=== PATIENT | male | born 1965 | race Caucasian/White ===

== ENCOUNTER 2019-04-02 21:17 | Emergency (ER) | payer BC ==
--- OUTSIDE RECORDS SUMMARY | 2019-04-02 21:29 | XMS REPORT | Summary of Care ---
:1965 Author Organization [facility] Address [address] [address] Care Team Providers Name Role Phone Drew Pitts Primary Care Provider Reason for Visit Reason Comments Hearing Aid Check Encounter Details Date Type Department Care Team Description 02/19/2019 Office Visit [facility] - [facility] [place], Sensorineural hearing loss, bilateral (Primary Dx); [facility] AuD Tinnitus, bilateral [address] [place] [address] [address] [address] [phone] Allergies Active Allergy Reactions Severity Noted Date Comments Naproxen Other Medium 05/27/2007 Nasal bleeding Zxhfsobj-Siqzkozhop-Jgaayuvyd Rash 04/08/2011 Shell Fish GI Reaction 10/06/2013 All fish. documented as of this encounter (statuses as of 02/19/2019) Medications Medication Sig Dispensed Refills Start Date End Date Status Multiple Vitamin Take by mouth. 0 Active (MULTI VITAMIN MENS PO) Cholecalciferol Take 1 Cap by 0 Active (VITAMIN D) 1000 UNITS mouth DAILY. Oral Cap Spacer/Aero-Holding 1 Units by Does 1 Device 0 12/03/2015 Active Chambers (AEROCHAMBER not apply route MINI CHAMBER) Does not DAILY. apply DeviceIndications: MURPHY (dyspnea on exertion) MELATONIN PO Take by mouth. 0 Active albuterol HFA Take 2 Puffs by 1 Inhaler 3 12/12/2018 Active (VENTOLIN) 108 (90 inhalation EVERY Base) MCG/ACT FOUR HOURS Inhalation Aero NEEDED (Shortness SolnIndications: MURPHY of breath). (dyspnea on exertion) valsartan (DIOVAN) 160 Take 1 Tab by 30 Tab 5 12/30/2018 Active MG Oral Tab mouth DAILY. ANDROGEL 50 MG/5GM Place 10 g onto 60 Package 0 02/18/2019 Active (1%) Transdermal Gel skin DAILY. Max Daily Amount: 10 g. documented as of this encounter (statuses as of 02/19/2019) Active Problems Problem Noted Date Essential hypertension 07/28/2017 MARIANO-inhibitor cough 07/28/2017 Other emphysema 07/28/2017 Non morbid obesity due to excess calories 11/07/2016 History of squamous cell carcinoma 08/01/2016 Low testosterone 09/06/2015 Dyslipidemia 07/20/2009 HAY FEVER 05/27/2007 OA HANDS 05/27/2007 documented as of this encounter (statuses as of 02/19/2019) Resolved Problems Problem Noted Date Resolved Date Abnormal stress test 11/04/2015 04/20/2016 Chest pain 11/04/2015 04/20/2016 Sleep Apnea 05/27/2007 04/20/2016 Tobacco Use 05/27/2007 07/20/2009 Overview: Began age 13 1 packs per day DEPRESSION 05/27/2007 07/20/2009 BMI 36.0-36.9,adult 11/07/2016 Overview: This patient's BMI has been calculated and is above average, and BMI management plan is completed. General patient education discussion including: weight loss link to reduction of risk factors for cardiac and other diseases documented as of this encounter (statuses as of 02/19/2019) Immunizations Name Administration Dates Next Due Hepatitis A Vaccine-Adult 05/28/2007 Hepatitis B Vaccine Adult 07/12/2007, 05/28/2007 Influenza (IM) Preservative Free 10/15/2018 Influenza Vaccine Whole 12/21/2004 TDAP Vaccine 05/28/2007 documented as of this encounter Social History Tobacco Use Types Packs/Day Years Used Date Former Smoker Cigarettes 1 30 Quit: 02/12/2009 Smokeless Tobacco: Never Used Alcohol Use Drinks/Week oz/Week Comments Yes 5-6 Standard drinks or equivalent 5.0 - 6.0 Sex Assigned at Date Recorded Not on file Job Start Date Occupation Industry Not on file Not on file Not on file Travel History Travel Start Travel End No recent travel history available. documented as of this encounter Last Filed Vital Signs Not on filedocumented in this encounter Progress Notes Max [place] AuD - 02/19/2019 8:00 AM ESTThe patient was unaccompanied to today's appointment. The purpose of today's appointment was to pick-up the patient's new custom hearing protection from [facility]. The patient has a history of custom useand was comfortable inserting and removing the molds from his ear. He reports a comfortable fit and requested to obtained a second pair of the custom molds in the exact settings. Arlen was contacted and a new order was placed through [employer] in customer service at Ext [phone]. Prior to leaving the patient was instructed to monitor fit/comfort over extended use. He was also provided the bill for $150. Once the second pair of custom molds arrive he will be contacted for P/U. A defined appointment will not be necessary for the pick- up of his second pair unless he has any concerns with his current pairs fit. He will be billed $150 at time for pick-up. documented in this encounter Plan of Treatment Name Type Priority Associated Diagnoses Order Schedule HEARING AID RECHECK Procedures Routine Sensorineural hearing Ordered: 02/19 loss, bilateral Tinnitus, bilateral Health Maintenance Due Date Last Done Comments PNEUMOCOCCAL 0-64 YRS (1 of 1970 1 - PPSV23) ZOSTER IMMUNIZATION SERIES 2014 (1 of 2) DTaP/Tdap/Td Vaccines (2 - 05/27/2017 05/28/2007 Tdap) LIPID DISORDER SCREENING 04/24/2019 04/23/2018, 10/27/2017, 10/30/2016, Additional history exists DEPRESSION SCREENING 05/04/2019 05/03/2018 DIABETES SCREENING 11/06/2019 11/05/2018, 11/05/2018, 04/23/2018, Additional history exists Colonoscopy 06/14/2021 06/14/2016 HEPATITIS A IMMUNIZATION Aged Out 05/28/2007 No longer eligible SERIES based on patient's age to complete this topic INFLUENZA VACCINE Completed 10/15/2018, 12/21/2004 HPV IMMUNIZATION SERIES Aged Out No longer eligible based on patient's age to complete this topic MENINGOCOCCAL VACCINE IMM Aged Out No longer eligible based on patient's age to complete this topic documented as of this encounter Goals Goal Patient Goal Associated Recent Patient-Stated? Author Type Problems Progress Blood Pressure Blood Pressure 120/74 No Jessica, < 140/90 (10/15/2018 Good Gee, 8:23 AM EDT) Note: This is an individualized treatment (blood pressure) goal for Bill Cardenas: Displayed above (on the left) is your goal for blood pressure control. Your most recent blood pressure is also shown above, on the right. You should try to achieve blood pressures that are lower than your goal listed above (on the left). Keep immunizations current Lifestyle Good Hunter MD Note: This is an individualized lifestyle goal for Bill Cardenas: Please be sure to keep up-to-date on recommended immunizations. For example, this would include a yearly influenza vaccine. Immunization status can be seen by looking at the Health Maintenance sections of your e[facility], Plan of Care, and any After Visit Summaries. Unit - lb < 220 Result Component No Drew Pitts MD Take all prescribed medications as Self-management Good Hunter MD directed Note: This is an individualized self-management goal for Bill Cardenas: Please take all prescribed medications as directed. 1. Do not skip doses. If you cannot afford your medications, talk with your doctor. 2. Use a pill reminder system such as a pill box if needed. Your pharmacist can help you with this. 3. Contact your Pharmacy 5 days before your medication runs out. If you cannot take your medications for any reasons, talk with your doctor. 4. Please bring all of your medication bottles and inhalers (or a list of all your medications/inhalers) with you to every visit. Potential barriers to meeting all of your care plan goals will continue to be addressed on an ongoing basis. documented as of this encounter Results Not on filedocumented in this encounter Visit Diagnoses Diagnosis Sensorineural hearing loss, bilateral Tinnitus, bilateral Unspecified tinnitus documented in this encounter Insurance Payer Benefit Plan / Subscriber ID Effective Dates Phone Address Type Group Map[employer]BS [employer] BCBS xxxxxxxxxxxx 2016-Present [employer] Guarantor Name Account Type Relation to Date of Phone Billing Patient Address Bill Cardenas Personal/Family 1965 [address] (Home) [place], [place] [phone] (Work) documented as of this encounter
[2019-04-02] MEDS ORDERED: Amoxicillin/Clavulanate TAB* 875 MG PO ONE (21:35)
--- NOTE | 2019-04-02 21:39 | ED ---
Bite Injury/Animal - HPI Summary HPI Summary: 53-year-old right-hand dominant male presents to the emergency department today after being bitten by his dog approximately 20 minutes ago and sustaining a laceration to his left thumb. Patient states he is pointing with his dog when the event happened. The dog is up-to-date with rabies vaccination. Patient is up-to-date with tetanus immunization. Patient has full range of motion and has no numbness or tingling. Patient otherwise feels well and denies fever, chest and abdominal pain, pain with urination, rash. - History of Current Complaint Chief Complaint: EDAnimalBite Stated Complaint: L THUMB LAC PER PT Hx Obtained From: Patient Onset of Injury: Happened hours ago Type of Bite: Animal Hx of Bite: Provoked by: - play Has Animal Been Immunized?: Yes Severity Initially: Moderate Severity Currently: Moderate Pain Intensity: 6 Pain Scale Used: 0-10 Numeric Character: Puncture Animal Available for Observation: Yes Animal Control Notified: No - Allergies/Home Medications Allergies/Adverse Reactions: Allergies Allergy/AdvReac Type Severity Reaction Status Date / Time bacitracin Allergy Blisters Verified 04/02/19 21:53 naproxen Allergy Bleeding Verified 04/02/19 21:53 neomycin Allergy Blisters Verified 04/02/19 21:53 [From Neosporin ([id number])] NSAIDS (Non-Steroidal Allergy Bleeding Verified 04/02/19 21:53 Anti-Inflamma polymyxin B Allergy Blisters Verified 04/02/19 21:53 [From Neosporin ([id number])] Home Medications: Home Medications Mometasone NASAL (NF) [Nasonex (NF)] 50 mcg NA DAILY PRN 06/11/15 [History Confirmed 04/02/19] Multiple Vitamins W/ Minerals [Multivitamin Adults] 1 tab PO DAILY 06/11/15 [ History Confirmed 04/02/19] Testosterone [Androgel] 50 mg TD DAILY 06/11/15 [History Confirmed 04/02/19] Amoxicillin/Clavulanate TAB* [Augmentin TAB 875*] 875 mg PO BID 7 Days #14 tab 04/02/19 [Rx] Triamcinolone 0.1% CREAM (NF) [Kenalog 0.1% Cream (NF)] 1 applic TOPICAL DAILY 04/02/19 [History Confirmed 04/02/19] Valsartan 1 tab PO DAILY 04/02/19 [History Confirmed 04/02/19] PMH/Surg Hx/FS Hx/Imm Hx Endocrine/Hematology History: Reports: Other Endocrine/Hematological Disorders - testosterone therapy Denies: Hx Anticoagulant Therapy, Hx Diabetes, Hx Thyroid Disease Cardiovascular History: Denies: Hx Hypertension Respiratory History: Denies: Hx Asthma, Hx Chronic Obstructive Pulmonary Disease (COPD) GI History: Denies: Hx Ulcer Neurological History: Reports: Hx Migraine - 2 x - has "stroke like" sx when these occur - Surgical History Surgery Procedure, Year, and Place: septum repair, hernia, vasectomy Infectious Disease History: No Infectious Disease History: Denies: Hx Hepatitis, Hx Human Immunodeficiency Virus (HIV), Traveled Outside the [place] in Last 30 Days - Family History Known Family History: Positive: Unknown - Social History Alcohol Use: Weekly Hx Substance Use: No Substance Use Type: Reports: None Smoking Status (MU): Former Smoker Review of Systems Constitutional: Negative Eyes: Negative ENT: Negative Cardiovascular: Negative Respiratory: Negative Gastrointestinal: Negative Genitourinary: Negative Musculoskeletal: Negative Skin: Negative Neurological/Mental Status: Negative Psychological: Normal All Other Systems Reviewed And Are Negative: Yes Physical Exam - Summary Physical Exam Summary: .5cm puncture wound noted to the distal left thumb. pt has rull ROM and no numbness and tingling. Triage Information Reviewed: Yes Vital Signs On Initial Exam: Initial Vitals Temp Pulse Resp BP Pulse Ox 97.5 F 93 18 143/97 96 04/02/19 21:18 04/02/19 21:18 04/02/19 21:18 04/02/19 21:18 04/02/19 21:18 Vital Signs Reviewed: Yes Appearance: Positive: Well-Appearing, No Pain Distress, Well-Nourished Skin: Positive: Warm, Skin Color Reflects Adequate Perfusion Eyes: Positive: EOMI, IVETH ENT: Positive: Hearing grossly normal Respiratory/Lung Sounds: Positive: Clear to Auscultation, Breath Sounds Present Cardiovascular: Positive: RRR, S1, S2 Abdomen Description: Positive: Nontender, Soft Bowel Sounds: Positive: Present Musculoskeletal: Positive: Strength/ROM Intact Neurological: Positive: Sensory/Motor Intact, Alert, Oriented to Person Place, Time, Normal Gait, Facial Symmetry, Speech Normal Psychiatric: Positive: Normal, Affect/Mood Appropriate AVPU Assessment: Alert Procedures - Sedation Patient Received Moderate/Deep Sedation with Procedure: No - Laceration/Wound Repair 1 Location: upper extremity Description: Irregular Anesthesia: Local, 1.0% Length, Depth and Shape: .5cm x .5cm Betadine Prep?: No Irrigated w/ Saline (ccs): 200 Laceration/Wound Explored: clean Closure: Single Layer Debridement: minimal Suture Type: Prolene Number of Sutures: 3 Layer Closure?: No Sterile Dressing Applied?: Yes Diagnostics - Vital Signs Vital Signs Temp Pulse Resp BP Pulse Ox 04/02/19 21:18 97.5 F 93 18 143/97 96 - Laboratory Lab Statement: Any lab studies that have been ordered have been reviewed, and results considered in the medical decision making process. Bite Injury Course/Dx - Course Course Of Treatment: Pt evaluated for dog bite. pt Tdap is UTD. vitals noted and stable. Pt laceration was cleaned and loosley approximated with 3 4-0 prolene sutures and placed in a sterile dressing. Pt given one dose of augmenting in the ER as well as a prescription for augmentin to continue taking for prophylaxis. PT discharged to outpatinet follow up. - Diagnoses Differential Diagnosis/HQI/PQRI: Positive: Fracture, Laceration, Puncture Provider Diagnosis: Laceration of thumb, Dog bite Discharge ED - Sign-Out/Discharge Documenting (check all that apply): Patient Departure - Discharge Plan Condition: Stable Disposition: HOME Prescriptions: Amoxicillin/Clavulanate TAB* [Augmentin TAB 875*] 875 mg PO BID 7 Days #14 tab Patient Education Materials: Animal Bite (ED), Care For Your Stitches (ED), Laceration (ED) Forms: *Work Release Referrals: Drew Pitts MD [Primary Care Provider] - 3 Days Additional Instructions: Please have your sutures removed in 8-10 days at your primary care provider or the emergency department. Please keep the dressing applied to your wound today dry and intact for 12 hours and then you may remove this and gently clean your wound. Please reapply dressing over this after cleaning your wound cleaning. Please wear gloves while at work. Due to infection rates please take Augmentin 875 twice daily for 7 days. Please return to the emergency department immediately if you develop any new or worsening symptoms. - Billing Disposition and Condition Condition: STABLE Disposition: Home
[2019-04-02 23:25] VITALS: BP 125/93
== END 2019-04-02 23:24 | disposition home or self-care (01) ==
LOC: ED 21:17
DX: S61.052A Open bite of left thumb without damage to nail, initial encounter (principal); W54.0XXA Bitten by dog, initial encounter; Y92.009 Unspecified place in unspecified non-institutional (private) residence as the place of occurrence of the external cause; Z98.52 Vasectomy status; Z87.891 Personal history of nicotine dependence; Z88.1 Allergy status to other antibiotic agents; Z88.8 Allergy status to other drugs, medicaments and biological substances
CPT/HCPCS: 12001; 99282; A9270-GY

== ENCOUNTER 2019-04-08 08:18 | Emergency (ER) | payer BC ==
--- NOTE | 2019-04-08 09:16 | ED ---
Skin Complaint - HPI Summary HPI Summary: Patient is a 53 y/o M presenting to [facility] for wound recheck. He states that a dog had bitten his left thumb last week. Patient was seen at [facility] and had three stitches placed. He had placed a bandage over his thumb four days ago and removed it for the first time this morning. He states that the stitches appear to be opening, patient notes the thumb is swollen and sore. No pus drainage noted. He was prescribed Augmentin during his initial ED visit and has been taking it as prescribed. 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 He claims allergy to topical antibiotics. Home medications and allergies are reviewed. Home Medications Medication Instructions Recorded Confirmed Type Mometasone NASAL (NF) [Nasonex 50 mcg NA DAILY PRN 06/11/15 04/02/19 History (NF)] Testosterone [Androgel] 50 mg TD DAILY 06/11/15 04/02/19 History Amoxicillin/Clavulanate TAB* 875 mg PO BID 7 Days #14 tab 04/02/19 Rx [Augmentin TAB 875*] Triamcinolone 0.1% CREAM (NF) 1 applic TOPICAL DAILY 04/02/19 04/02/19 History [Kenalog 0.1% Cream (NF)] Valsartan 1 tab PO DAILY 04/02/19 04/02/19 History Multivitamins/Minerals TAB* 1 tab PO DAILY 04/08/19 04/08/19 History [Theragran/minerals TAB*] - History of Current Complaint Chief Complaint: EDLacSutureRecheck Time Seen by Provider: 04/08/19 08:54 Stated Complaint: LT THUMB STITCHES TEARING PER PT Hx Obtained From: Patient Onset/Duration: Still Present Timing: Constant Current Severity: Moderate Pain Intensity: 4 Pain Scale Used: 0-10 Numeric Skin Location: Hand - left thumb Character: Swelling, Pain Associated Signs & Symptoms: Negative - Allergy/Home Medications Allergies/Adverse Reactions: Allergies Allergy/AdvReac Type Severity Reaction Status Date / Time bacitracin Allergy Blisters Verified 04/02/19 21:53 naproxen Allergy Bleeding Verified 04/02/19 21:53 neomycin Allergy Blisters Verified 04/02/19 21:53 [From Neosporin ([id number])] NSAIDS (Non-Steroidal Allergy Bleeding Verified 04/02/19 21:53 Anti-Inflamma polymyxin B Allergy Blisters Verified 04/02/19 21:53 [From Neosporin ([id number])] Home Medications: Home Medications Mometasone NASAL (NF) [Nasonex (NF)] 50 mcg NA DAILY PRN 06/11/15 [History Confirmed 04/08/19] Testosterone [Androgel] 50 mg TD DAILY 06/11/15 [History Confirmed 04/08/19] Amoxicillin/Clavulanate TAB* [Augmentin TAB 875*] 875 mg PO BID 7 Days #14 tab 04/02/19 [Rx Confirmed 04/08/19] Triamcinolone 0.1% CREAM (NF) [Kenalog 0.1% Cream (NF)] 1 applic TOPICAL DAILY 04/02/19 [History Confirmed 04/08/19] Valsartan 1 tab PO DAILY 04/02/19 [History Confirmed 04/08/19] Multivitamins/Minerals TAB* [Theragran/minerals TAB*] 1 tab PO DAILY 04/08/19 [ History Confirmed 04/08/19] PMH/Surg Hx/FS Hx/Imm Hx Endocrine/Hematology History: Reports: Other Endocrine/Hematological Disorders - testosterone therapy Denies: Hx Anticoagulant Therapy, Hx Diabetes, Hx Thyroid Disease Cardiovascular History: Denies: Hx Hypertension Respiratory History: Denies: Hx Asthma, Hx Chronic Obstructive Pulmonary Disease (COPD) GI History: Denies: Hx Ulcer Neurological History: Reports: Hx Migraine - 2 x - has "stroke like" sx when these occur - Surgical History Surgery Procedure, Year, and Place: septum repair, hernia, vasectomy Infectious Disease History: No Infectious Disease History: Denies: Hx Hepatitis, Hx Human Immunodeficiency Virus (HIV), Traveled Outside the US in Last 30 Days - Family History Known Family History: Negative: Cardiac Disease, Hypertension, Diabetes - Social History Alcohol Use: Daily Alcohol Amount: 1 drink Hx Substance Use: No Substance Use Type: Reports: None Smoking Status (MU): Former Smoker Review of Systems Positive: Myalgia - thumb , Edema Skin: Other - positive - thumb laceration with stitches, no pus drainage All Other Systems Reviewed And Are Negative: Yes Physical Exam - Summary Physical Exam Summary: Constitutional: Well-developed, Well-nourished, Alert. (-) Distressed Skin: Warm, Dry; There are intact stitches over the lateral nail bed margin of the left thumb. Mild erythema noted. There is no wound dehiscence. HENT: Normocephalic; Atraumatic Eyes: Conjunctiva normal Neck: Musculoskeletal ROM normal neck. (-) JVD, (-) Stridor, (-) Tracheal deviation Cardio: Rhythm regular, rate normal, Heart sounds normal; Intact distal pulses; The pedal pulses are 2+ and symmetric. Radial pulses are 2+ and symmetric. (-) Murmur Pulmonary/Chest wall: Effort normal. (-) Respiratory distress, (-) Wheezes, (-) Rales Abd: Soft, (-) tenderness, (-) Distension, (-) Guarding, (-) Rebound Musculoskeletal: (-) Edema Lymph: (-) Cervical adenopathy Neuro: Alert, Oriented x3 Psych: Mood and affect Normal Triage Information Reviewed: Yes Vital Signs On Initial Exam: Initial Vitals Temp Pulse Resp BP Pulse Ox 97.7 F 77 18 137/91 98 04/08/19 08:21 04/08/19 08:21 04/08/19 08:21 04/08/19 08:21 04/08/19 08:21 Vital Signs Reviewed: Yes Procedures - Sedation Patient Received Moderate/Deep Sedation with Procedure: No Diagnostics - Vital Signs Vital Signs Temp Pulse Resp BP Pulse Ox 04/08/19 08:21 97.7 F 77 18 137/91 98 - Laboratory Lab Statement: Any lab studies that have been ordered have been reviewed, and results considered in the medical decision making process. Course/Dx - Course Course Of Treatment: Patient is a 53 y/o M presenting to [facility] for wound recheck. He states that a dog had bitten his left thumb last week. Patient was seen at [facility] and had three stitches placed. He had placed a bandage over his thumb four days ago and removed it for the first time this morning. He states that one of the stitches opened, patient notes the thumb is swollen and sore. No pus drainage noted. He was prescribed Augmentin during his initial ED visit and has been taking it as prescribed. 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 He claims allergy to topical antibiotics. On physical exam, intact stitches over the lateral nail bed margin of the left thumb. Mild erythema noted. There is no wound dehiscence. Patient was discharged to home and will followup with PCP for stitches removal in 2-3 days. - Diagnoses Provider Diagnoses: Encounter for re-check of laceration wound Discharge ED - Sign-Out/Discharge Documenting (check all that apply): Patient Departure - discharge - Discharge Plan Condition: Stable Disposition: HOME Patient Education Materials: Care For Your Stitches (ED) Referrals: Drew Pitts MD [Primary Care Provider] - 3 Days Additional Instructions: PLEASE RETURN FOR ANY NEW OR CONCERNING SYMPTOMS. PLEASE FOLLOW UP WITH YOUR PRIMARY CARE PHYSICIAN IN 2-3 DAYS. - Billing Disposition and Condition Condition: STABLE Disposition: Home - Attestation Statements Document Initiated by Ashwin: Yes Documenting Scribe: EH BISHOP Provider For Whom Ashwin is Documenting (Include Credential): CAROLINE BAILEY DO Scribe Attestation: EH Dolan scribed for CAROLINE BAILEY DO on 04/08/19 at 1110. Scribe Documentation Reviewed: Yes Provider Attestation: The documentation as recorded by the EH acevedo accurately reflects the service I personally performed and the decisions made by , CAROLINE BAILEY DO Status of Scribponce Document: Viewed
[2019-04-08 09:41] VITALS: BP 132/88
== END 2019-04-08 09:40 | disposition home or self-care (01) ==
LOC: ED 08:18
DX: S61.012D Laceration without foreign body of left thumb without damage to nail, subsequent encounter (principal); W54.0XXD Bitten by dog, subsequent encounter
CPT/HCPCS: 99282

== ENCOUNTER 2023-02-26 10:24 | Observation (INO) ==
[2023-02-26 10:52] LABS: ABS Basophils 0.1 10^3/uL (0.0-0.1); ABS Eosinophils 0.1 10^3/uL (0.0-0.5); ABS Lymphocytes 1.5 10^3/uL (1.0-4.8); ABS Monocytes 0.6 10^3/uL (0.0-1.1); ABS Neutrophils 3.9 10^3/uL (1.5-7.6); ABS Nucleated RBC 0.01 10^3/ul; Eosinophil % 1.8 %; Hematocrit 45.7 % (38-53); Hemoglobin 15.7 g/dL (13.2-16.3); Lymphocyte % 24.7 %; Mean Corpuscular Hemoglobin 29.3 pg (27-33); Mean Corpuscular Hgb Conc 34.3 g/dL (31-36); Mean Corpuscular Volume 85.3 fL (80-97); Mean Platelet Volume 8.5 fL (7.5-11.2); Nucleated Red Blood Cells % 0.1 %/100WBC (0.0-0.8); Platelet Count 214 10^3/uL (150-450); Red Blood Count 5.35 10^6/uL (4.06-5.63); Red Cell Distribution Width 13.7 % (12-17); White Blood Count 6.2 10^3/uL (3.6-10.2)
[2023-02-26 11:12] LABS: INR 0.97 (0.83-1.13)
[2023-02-26 11:16] LABS: High Sens Troponin Baseline < 3 pg/mL (<20)
[2023-02-26 11:18] LABS: ALT 18 U/L (7-52); Albumin 4.3 g/dL (3.2-5.2); Albumin/Globulin Ratio 1.7 (1-3); Alkaline Phosphatase 86 U/L (35-149); Anion Gap 9 mmol/L (2-16); Blood Urea Nitrogen 16 mg/dL (6-24); CO2 Carbon Dioxide 25 mmol/L (22-32); Calcium 8.7 mg/dL (8.6-10.3); Chloride 105 mmol/L (101-111); Creatinine, Serum 0.69 mg/dL (0.67-1.17); Globulin 2.6 g/dL (2-4); Glucose 107 mg/dL (70-100); Sodium 139 mmol/L (135-145); Total Bilirubin 0.5 mg/dL (0.2-1.0); Total Protein 6.9 g/dL (6.4-8.9); eGFR CKD-EPI 107.3 (>60)
[2023-02-26 12:34] LABS: High Sensitivity Troponin 1 Hr < 3 pg/mL (<20)
[2023-02-26] MEDS ORDERED: Iohexol 350 (CONTRAST) 500 ML MDV IV ONE (12:54)
[2023-02-26 15:16] LABS: Magnesium 2.1 mg/dL (1.9-2.7)
[2023-02-26 18:23] LABS: Cholesterol 187 mg/dL; HDL Cholesterol 44.7 mg/dL; LDL Cholesterol 118 mg/dL; Triglycerides 122 mg/dL
[2023-02-26] MEDS ORDERED: Enoxaparin 40 MG/0.4 ML SYR SUBCUT SCH (20:00)
[2023-02-27 07:05] LABS: ABS Basophils 0.1 10^3/uL (0.0-0.1); ABS Eosinophils 0.2 10^3/uL (0.0-0.5); ABS Lymphocytes 1.5 10^3/uL (1.0-4.8); ABS Monocytes 0.6 10^3/uL (0.0-1.1); ABS Neutrophils 3.8 10^3/uL (1.5-7.6); ABS Nucleated RBC 0.01 10^3/ul; Eosinophil % 3.1 %; Hemoglobin 15.6 g/dL (13.2-16.3); Mean Corpuscular Hemoglobin 28.8 pg (27-33); Mean Corpuscular Hgb Conc 33.9 g/dL (31-36); Mean Corpuscular Volume 84.7 fL (80-97); Mean Platelet Volume 8.4 fL (7.5-11.2); Nucleated Red Blood Cells % 0.1 %/100WBC (0.0-0.8); Platelet Count 199 10^3/uL (150-450); Red Blood Count 5.43 10^6/uL (4.06-5.63); Red Cell Distribution Width 13.7 % (12-17); White Blood Count 6.1 10^3/uL (3.6-10.2)
[2023-02-27 07:18] LABS: Calcium 8.8 mg/dL (8.6-10.3); Creatinine, Serum 0.75 mg/dL (0.67-1.17); Magnesium 2.1 mg/dL (1.9-2.7); Potassium 4.3 mmol/L (3.5-5.0); eGFR CKD-EPI 104.6 (>60)
[2023-02-27] MEDS ORDERED: CMCS: TESTOSTERONE GEL 25 MG (NF) IN 2.5 GM SIZE PACKET TOPICAL SCH (09:00)
[2023-02-27 10:04] VITALS: BP 140/104
[2023-02-27] MEDS ORDERED: Iohexol 350 (CONTRAST) 500 ML MDV IV ONE (12:04)
== END 2023-02-27 14:30 | disposition home or self-care (01) ==
LOC: EDHOLD 10:24 → ED 10:24 → MEDTELE 16:15
PROVIDERS: ADMIT Internal Medicine; ATTEND Internal Medicine